=== PATIENT | male | born 1955 | race African-American/Black ===

== ENCOUNTER 2018-02-20 18:54 | Emergency (ER) | payer OTHER ==
[2018-02-20] MEDS ORDERED: Acetaminophen 500 MG TAB ONE (19:34)
[2018-02-20] MEDS ORDERED: diphenhydrAMINE 50 MG/ML VIAL ONE (19:35)
[2018-02-20] MEDS ORDERED: Prochlorperazine 10 MG/2 ML VIAL ONE (19:35)
[2018-02-20] MEDS ORDERED: Ketorolac Tromethamine 30 MG/ML VIAL ONE (19:35)
== END 2018-02-20 20:23 | disposition home or self-care (01) ==
LOC: MADERS 18:54
DX: R51 Headache (principal); K21.9 Gastro-esophageal reflux disease without esophagitis; I25.2 Old myocardial infarction; E78.5 Hyperlipidemia, unspecified; I10 Essential (primary) hypertension; F17.210 Nicotine dependence, cigarettes, uncomplicated; Z79.899 Other long term (current) drug therapy; Z79.82 Long term (current) use of aspirin
CPT/HCPCS: 96372; J0780; J1200; J1885

== ENCOUNTER 2018-08-16 13:05 | Emergency (ER) | payer OTHER ==
--- NOTE | 2018-08-16 14:01 | CT ---
FHead CT without contrast 08/16/2018: COMPARISON: none HISTORY: Left facial numbness, increasing dizziness TECHNIQUE: Axial CT imaging at 5 mm intervals from vertex through skull base without contrast FINDINGS: Imaged paranasal sinuses and mastoid air cells well aerated. No intracranial hemorrhage, mi dline shift, or mass effect. Periventricular and deep white matter hypodensity, evidence of small ves job disease. No acute osseous abnormality. IMPRESSION: Small vessel disease with no intracranial hemorrhage.
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
== END 2018-08-16 14:50 | disposition home or self-care (01) ==
LOC: MADERS 13:05
DX: G58.8 Other specified mononeuropathies (principal); K21.9 Gastro-esophageal reflux disease without esophagitis; E78.5 Hyperlipidemia, unspecified; I10 Essential (primary) hypertension; I25.2 Old myocardial infarction; F17.210 Nicotine dependence, cigarettes, uncomplicated; Z79.82 Long term (current) use of aspirin; Z79.899 Other long term (current) drug therapy
CPT/HCPCS: 70450; 71045

== ENCOUNTER 2019-01-30 11:03 | Outpatient (CLI) | payer MEDICARE, OTHER ==
--- NOTE | 2019-01-30 11:22 | RAD ---
EXAM: 3 views of the right knee HISTORY: Knee pain for 3 months COMPARISON: None FINDINGS: No knee effusion is seen. There is no evidence of acute fracture or dislocation. No signifi cant degenerative changes are seen. No soft tissue swelling is present. IMPRESSION: No evidence of acute osseous abnormality.
--- NOTE | 2019-01-30 11:29 | RAD ---
EXAM: Chest 2 views: HISTORY: Dry cough COMPARISON: 09/30/2015 FINDINGS: There is a normal-sized cardiomediastinal silhouette. There is no evidence of consolidation, mass, or pleural effusion. The bones are unremarkable. IMPRESSION: No evidence of acute cardiopulmonary disease
== END 2019-01-30 11:04 | disposition home or self-care (01) ==
LOC: MADRAD 11:03
PROVIDERS: ATTEND Family Medicine
DX: M25.561 Pain in right knee (principal); R05 Cough
CPT/HCPCS: 71046

== ENCOUNTER 2019-07-17 14:41 | Emergency (ER) | payer MEDICARE, OTHER | END 2019-07-17 15:25 | disposition home or self-care (01) | LOC: MADERS 14:41 | DX: M54.5 Low back pain (principal); I20.9 Angina pectoris, unspecified; I10 Essential (primary) hypertension; Z79.82 Long term (current) use of aspirin; Z79.899 Other long term (current) drug therapy | CPT/HCPCS: 99283 ==

== ENCOUNTER 2020-04-04 13:41 | Outpatient (CLI) | payer MEDICARE, OTHER ==
--- NOTE | 2020-04-04 14:00 | RAD ---
RIGHT KNEE FOUR VIEWS: 04/04/20 HISTORY: Right Knee pain. FINDINGS/IMPRESSION: No fracture, dislocation or bony destruction is seen. No significant osteophytosis is noted. POS: OFF
== END 2020-04-04 13:42 | disposition home or self-care (01) ==
LOC: MADRAD 13:41
PROVIDERS: ATTEND Orthopaedic Surgery
DX: M25.561 Pain in right knee (principal)

== ENCOUNTER 2021-07-09 20:44 | Emergency (ER) | payer MEDICARE, OTHER | END 2021-07-09 21:35 | disposition home or self-care (01) | LOC: MADERS 20:44 | DX: G50.0 Trigeminal neuralgia (principal); I10 Essential (primary) hypertension; F17.210 Nicotine dependence, cigarettes, uncomplicated; Z79.899 Other long term (current) drug therapy; Z79.82 Long term (current) use of aspirin | CPT/HCPCS: 99283 ==

== ENCOUNTER 2022-02-09 11:07 | Emergency (ER) | payer MEDICARE, OTHER | END 2022-02-09 12:10 | disposition home or self-care (01) | LOC: MADERS 11:07 | DX: G50.0 Trigeminal neuralgia (principal); I10 Essential (primary) hypertension; F17.210 Nicotine dependence, cigarettes, uncomplicated; Z85.528 Personal history of other malignant neoplasm of kidney; Z79.82 Long term (current) use of aspirin; Z79.899 Other long term (current) drug therapy | CPT/HCPCS: 99283 ==